=== PATIENT | male | born 1970 | race Caucasian/White ===

== ENCOUNTER 2016-10-22 00:36 | Emergency (ER) | payer OTHER ==
[2016-10-22 02:25] VITALS: BP 140/88
== END 2016-10-22 02:25 | disposition home or self-care (01) ==
LOC: ED 00:36
DX: G47.00 Insomnia, unspecified (principal)

== ENCOUNTER 2017-05-21 19:40 | Emergency (ER) | payer OTHER ==
[~2017-05-21] VITALS: Ht 165.1 cm; Wt 92.1 kg
[2017-05-21 19:45] VITALS: Ht 165.1 cm; Wt 92.1 kg
[2017-05-21 21:36] LABS: BASOPHIL % 0.2 % (0-2); PLATELET COUNT 236 x10^3mcL (130-400); RED CELL DISTRIBUTION WIDTH 13.1 % (11.5-14.5)
[2017-05-21 21:52] LABS: CALCIUM 8.6 mg/dL (8.5-10.1); CARBON DIOXIDE 23.4 mmol/L (21-32); CHLORIDE SERUM 105 mmol/L (98-107); CREATININE SERUM 0.7 mg/dL (0.7-1.3); GFR1 > 60 mL/min; GLUCOSE SERUM 123 mg/dL (74-106); POTASSIUM SERUM 3.9 mmol/L (3.5-5.1); SODIUM SERUM 140 mmol/L (136-145)
[2017-05-21 21:56] LABS: ALBUMIN 4.3 g/dL (3.4-5.0); ALKALINE PHOSPHATASE 31 U/L (46-116); ALT/SGPT 28 U/L (16-63); AST/SGOT 22 U/L (15-37); BILIRUBIN TOTAL 0.36 mg/dL (0.20-1.00); CHOLESTEROL 145 mg/dL (<200); HDL CHOLESTEROL 36 mg/dL (40-60); PHOSPHOROUS 3.6 mg/dL (2.5-4.9); URIC ACID 4.7 mg/dL (3.5-7.2)
[2017-05-21 22:56] VITALS: BP 114/77
== END 2017-05-21 22:56 | disposition home or self-care (01) ==
LOC: ED 19:40
PROVIDERS: Emergency Medicine
DX: R07.89 Other chest pain (principal)
CPT/HCPCS: 36415; 83880; J1885